=== PATIENT | female | born 1985 | race Caucasian/White ===

== ENCOUNTER → 2017-10-12 | Outpatient (CLI) | payer OTHER | LOC: FIMAGING 14:12 | PROVIDERS: ATTEND Obstetrics & Gynecology | DX: Z13.820 Encounter for screening for osteoporosis (principal); M85.80 Other specified disorders of bone density and structure, unspecified site ==

== ENCOUNTER 2018-02-10 15:13 | Emergency (ER) | payer OTHER ==
--- NOTE | 2018-02-10 15:18 | EDPHY ---
H & P Time Seen by Provider: 02/10/18 15:17 HPI/ROS: 32-year-old female presents complaining of right hand pain and bruising, she was putting her arm in her sweatshirt and accidentally hit a cabinet with the back of her hand. No numbness or tingling, no fevers or chills. Review of systems As per HPI General no fever no chills no weakness HEENT no eye pain no eye discharge. No eye redness, no sore throat Respiratory no cough, no shortness of breath Cardiac no chest pain, no peripheral edema GI no abdominal pain, no diarrhea, no constipation, no nausea, no vomiting no flank pain, no hematuria, no dysuria Musculoskeletal no myalgias, positive joint pain Heme no easy bruising, no easy bleeding Endo no polyuria, no polydipsia Skin no rashes, no pruritus Neuro no syncope, no dizziness, no headaches Psych is no suicidal ideation, no homicidal ideation Past Medical/Surgical History: Prior surgery on right wrist for a cyst Social History: Denies alcohol or drug use Smoking Status: Never smoked Physical Exam: 32-year-old female Alert and oriented in no acute distress nontoxic appearance, afebrile Atraumatic normocephalic Neck no JVD Lungs clear to auscultation, no respiratory distress Heart regular rate and rhythm Extremities no cyanosis clubbing edema right hand with ecchymoses to dorsum of hand extending to mcps 2,3,4 able to make a fist, no angulation, good breaker off from of digits, wrist and elbow sensation intact good cap refill minimal swelling Constitutional: Initial Vital Signs Temperature (C) 36.8 C 02/10/18 15:19 Heart Rate 60 02/10/18 15:19 Respiratory Rate 16 02/10/18 15:19 Blood Pressure 117/76 02/10/18 15:19 O2 Sat (%) 99 02/10/18 15:19 O2 Delivery Mode Room Air Allergies/Adverse Reactions: No Known Allergies Allergy (Verified 02/10/18 15:18) Home Medications: Medication Instructions Recorded Calcium Carbonate [Calcium] 02/10/18 Estradiol Transdermal Patch 02/10/18 Progesterone 02/10/18 Medical Decision Making - Diagnostics Imaging Results: Imaging Impressions Hand X-Ray 02/10/18 15:27 Impression: Nothing acute identified. ED Course/Re-evaluation: Pt seen for right hand injury from 2 days ago xray neg for fracture or sts Imp right hand dorsum contusion plan rest , ice, elevation ibuprofen or acetaminphen prn f/u pcp as needed Differential Diagnosis: Differential diagnosis considered but not limited to: Right hand sprain, right hand contusion, metacarpal fracture, phalanx fracture Departure - Departure Disposition: Home, Routine, Self-Care Clinical Impression: Contusion of right hand Condition: Good Instructions: Contusion in Adults (ED) Referrals: Emelyn Kitchen MD [Primary Care Provider] - As per Instructions
[2018-02-10 15:25] VITALS: BP 117/76
== END 2018-02-10 15:57 | disposition home or self-care (01) ==
LOC: CED 15:13
DX: S60.221A Contusion of right hand, initial encounter (principal); W22.8XXA Striking against or struck by other objects, initial encounter
CPT/HCPCS: 73130-PO

== ENCOUNTER 2018-08-07 07:32 | Inpatient (IN) | payer OTHER ==
--- NOTE | 2018-07-19 13:44 | GHP ---
DATE OF ADMISSION: 08/07/2018 ADMITTING DIAGNOSES: 1. Left complex mass. 2. Left lower quadrant pain. 3. Pelvic pain. HISTORY OF PRESENT ILLNESS: The patient is a 33-year-old nulliparous female who presents to the office with complaints of acute onset for the last 2-3 weeks of pelvic pressure and left lower quadrant pain. The pain is present on a daily basis. at times it is dull and achy, and other times it is sharp and stabbing with radiation into pelvis. Patient is taking Tramadol at night, which helps her to sleep. There is no associated nausea, or vomiting. Lying still exacerbates the pain. Being active and movement alleviates the pain. Normal bladder function noted. She does note constipation recently and change in bowel movements. The patient is no longer getting menstrual cycles and is doing overall well on hormone replacement therapy. The patient has a long history of ovarian cysts with multiple laparoscopies and was told she does not have a right ovary. Her most recent surgery was done 09/24 where she underwent a diagnostic laparoscopy, with extensive lysis of adhesions by General Surgery, ureterolysis, and a left salpingo oophorectomy. The patient states this pain is interfering with her work and would like to proceed with surgery at this time. PAST OBSTETRIC HISTORY: Patient is nulliparous. PAST GYNECOLOGIC HISTORY: Age of menarche 10. Cycles are now absent. No history of abnormal Pap smears. No history of exposure to sexually transmitted diseases. PAST MEDICAL HISTORY: Ovarian cysts. Pelvic pain.. PAST SURGICAL HISTORY: In 1999, she had shoulder surgery. In 2005, she had a laparoscopy with left cystectomy. In 2009, she had another laparoscopy with right cystectomy. In 2010, had a laparoscopy with left cystectomy. In 03/2103, she had a laparotomy for repair of bowel obstruction. Appendectomy. In 09/2016, she had laparoscopy with lysis of adhesions and left salpingo-oophorectomy. CURRENT MEDICATIONS: Tramadol 50 mg prn. Prometrium 100 mg. Estradiol 1 mg. ALLERGIES: No known drug allergies. FAMILY HISTORY: Unremarkable. SOCIAL HISTORY: Pt is and lives with her and foster adoptive parent of a 10-year-old and a 5-year-old. She is a teacher. Denies any alcohol, tobacco, or illicit drug use. STUDIES: Pelvic ultrasound reveals normal-appearing uterus measuring 7 x 4cm and thin endometrium; right adnexa is also normal appearing; there is a large complex mass in the left adnexa measuring 5 x 4 x 4 cm. There is flow to the rim of the mass, questionable endometrioma. PHYSICAL EXAMINATION: On admission: VITAL SIGNS: Stable. GENERAL: Patient is well-nourished, well-developed female. Alert and oriented x3. No apparent distress. SKIN: Warm, dry. Without rash. NEURO: Grossly intact. CARDIOVASCULAR: Regular rate and rhythm. LUNGS: Clear to auscultation bilaterally. ABDOMEN: Soft. Surgical scars noted. There is mild to moderate tenderness to palpation in left lower quadrant. No rebound or guarding noted. PELVIC: On bimanual exam, uterus is normal size, nontender, and mobile. There is tenderness to palpation and fullness noted in the left adnexa. EXTREMITIES: normal to inspection without calf tenderness or edema. ASSESSMENT/PLAN: Patient is a 33-year-old nulliparous female with history of ovarian cysts and multiple laparoscopic surgeries, now with a new onset left lower quadrant pain and a left complex mass. 1. Discussed the procedure, its limitations, nothing by mouth status, and post- op recovery. 2. Discussed risks, benefits, alternatives of surgery with the patient including but not limited to, bleeding, infection, damage to surrounding organs , and possible large incision. 3. Patient understands all risks of the surgery and wants to proceed at this time. Patient was properly consented. 4. Antibiotics long lines operator to operating room. 5. Sequential compression devices for deep vein thrombosis prophylaxis. /[id number]/MODL MTDD
[2018-08-07] MEDS ORDERED: ceFAZolin 2 GM/DEXTROSE 100 ML IV ONE (07:44)
[2018-08-07] MEDS ORDERED: LIDOCAINE 1% 2 ML INJ ID PRN (07:45)
[2018-08-07] MEDS ORDERED: LR 1,000 ML IV ONE (07:45)
[2018-08-07] MEDS ORDERED: LIDOCAINE 1% 2 ML INJ ONE (07:57)
--- NOTE | 2018-08-07 08:16 | PDANEPAE ---
ANE History of Present Illness 33 y/o female here for diagnostic laparoscopy for abdominal pain. ANE Past Medical History - Cardiovascular History Hx Hypertension: No Hx Arrhythmias: No Hx Chest Pain: No Hx Coronary Artery / Peripheral Vascular Disease: No Hx CHF / Valvular Disease: No Hx Palpitations: No - Pulmonary History Hx COPD: No Hx Asthma/Reactive Airway Disease: No Hx Recent Upper Respiratory Infection: No Hx Oxygen in Use at Home: No Hx Sleep Apnea: No Sleep Apnea Screening Result - Last Documented: Negative - Neurologic History Hx Cerebrovascular Accident: No Hx Seizures: No Hx Dementia: No - Endocrine History Hx Diabetes: No - Renal History Hx Renal Disorders: No - Liver History Hx Hepatic Disorders: No - Neurological & Psychiatric Hx Hx Neurological and Psychiatric Disorders: No - Cancer History Hx Cancer: No - Congenital Disorder History Hx Congenital Disorders: No - GI History GERD: no Hx Gastrointestinal Disorders: No - Other Health History Other Health History: reading glasses. LLQ pain - Chronic Pain History Chronic Pain: No - Surgical History Prior Surgeries: laparoscopy w/lysis of adhesions and left salpingo-oophprectomy , 09/2016. appendectomy. laparotomy for repair of bowel obstruction, 2012. laparoscopy w/left cystectomy, 2010. laparoscopy w/right cystectomy, 2009. laparoscopy w/left cystectomy, 2005. Shoulder surgery, 1999 ANE Review of Systems Review of Systems: - Exercise capacity Exercise capacity: >=4 METS METS (RN): 5 METS - Systems Gastrointestinal: Reports: abdominal pain ANE Patient History - Allergies Allergies/Adverse Reactions: No Known Allergies Allergy (Verified 07/21/18 11:06) - Home Medications Home medications: home medication list seen and reviewed Home Medications: Calcium Carbonate [Calcium] 02/10/18 [Last Taken 07/31/18] Estradiol Transdermal Patch 02/10/18 [Last Taken 08/04/18] Progesterone 02/10/18 [Last Taken 08/05/18] Ibuprofen PRN 07/21/18 [Last Taken 07/21/18] Melatonin 07/21/18 [Last Taken 08/05/18] Tylenol PRN 07/21/18 [Last Taken 08/05/18] - NPO status NPO Since - Liquids (Date): 08/07/18 NPO Since - Liquids (Time): 04:00 (CLEARS) - Anes Hx Anes Hx: no prior problems, post operative nausea (NAUSEA AFTER LAST GENERAL ANESTHETIC ONLY. DID NOT HAPPEN BEFORE) - Smoking Hx Smoking Status: Never smoked - Family Anes Hx Family Hx Anesthesia Complications: NEG ANE Labs/Vital Signs - Vital Signs Height: 160.02 cm Weight: 70.307 kg ANE Physical Exam - Airway Mallampati Score: Class 1 Mouth exam: normal dental/mouth exam - Pulmonary Pulmonary: no respiratory distress, clear to auscultation - Cardiovascular Cardiovascular: regular rate and rhythym, no murmur, rub, or gallop - ASA Status ASA Status: II
[2018-08-07] MEDS ORDERED: MIDAZOLAM 2 MG/2 ML VIAL IVP ONE (08:25)
[2018-08-07] MEDS ORDERED: SILVER NITRATE APPLICATOR 1 APPL TP ONE (08:31)
[2018-08-07] MEDS ORDERED: BUPIVACAINE 0.5% 30 ML SDV ONE (08:31)
--- NOTE | 2018-08-07 08:38 | PDHPUP ---
History & Physical Update H&P update statement: This history and physical update is based on an assessment of the patient which was completed after admission or registration (within 24 hours), but prior to the surgery/procedure. H&P update: H&P reviewed & patient examined, no change in patient's condition since H&P completed
[2018-08-07] MEDS ORDERED: fentaNYL 100 MCG/2 ML INJ ONE (08:49)
[2018-08-07] MEDS ORDERED: PROPOFOL 200 MG/20 ML VIAL ONE ×2 (08:50→09:33)
[2018-08-07] MEDS ORDERED: ROCURONIUM 50 MG/5 ML VIAL ONE ×2 (09:13→10:27)
[2018-08-07] MEDS ORDERED: ONDANSETRON 4 MG/2 ML VIAL ONE ×2 (09:13→12:29)
[2018-08-07] MEDS ORDERED: METOCLOPRAMIDE 10 MG/2 ML VIAL ONE (09:13)
[2018-08-07] MEDS ORDERED: DEXAMETHASONE 4 MG/ML VIAL ONE (09:13)
[2018-08-07] MEDS ORDERED: PETROLAT,WHT/MIN OIL/SOD CHL 3.5 GM OPHT.OINT ONE (09:45)
[2018-08-07] MEDS ORDERED: METHYLENE BLUE 0.5% 50 MG/10 ML AMP ONE (10:33)
[2018-08-07] MEDS ORDERED: ePHEDrine SULFATE 25 MG/5 ML SYR ONE (11:02)
[2018-08-07] MEDS ORDERED: HYDROmorphONE/DILAUDID 2 MG/ML INJ ONE ×2 (11:09→12:53)
[2018-08-07] MEDS ORDERED: GLYCOPYRROLATE 0.2 MG/1 ML VIAL ONE ×2 (11:20→11:21)
[2018-08-07] MEDS ORDERED: NEOSTIGMINE METHYLSULFATE 5 MG/5 ML SYR ONE (11:20)
[2018-08-07] MEDS ORDERED: ACETAMINOPHEN 500 MG TAB PO PRN (11:32)
[2018-08-07] MEDS ORDERED: NALOXONE HCL 0.4 MG/ML INJ IVP PRN ×2 (11:32→12:27)
[2018-08-07] MEDS ORDERED: LR 500 ML IV PRN (11:32)
[2018-08-07] MEDS ORDERED: DEXAMETHASONE 4 MG/ML VIAL IVP PRN (11:32)
[2018-08-07] MEDS ORDERED: ONDANSETRON 4 MG/2 ML VIAL IVP PRN ×2 (11:32→17:11)
--- NOTE | 2018-08-07 12:17 | POSTOPPROG ---
Post Op Note Date of Operation: 08/07/18 Surgeon: Leigh Griggs It Technical Architect: Abram Martino Anesthesiologist: Rosalba Hanks Anesthesia: GET(General Endotracheal) Pre-op Diagnosis: LLQ pain; L adnexal mass Post-op Diagnosis: LLQ pain; L adnexal mass; L endometrioma; Bowel adhesions Indication: 33 y/o w/ h/o endometriosis on HRT with acute LLQ pain; L adnexal mass u/s Procedure: Laparoscopy w/ MARIFER; L ov cystectomy; rpr of bowel injury w/ resection ; cyst Findings: Ut, L adnexa w/ bowel adhesions; R ovary absent; sigmoid adhered to L side Inf/Abcess present in the surg proc area at time of surgery?: No Depth: Organ Space EBL: 50-100 (50 cc) Total fluids administered: 1500 cc LR UO: 300 cc methylene blue stained urine Complications: Bowel injury noted secondary to dense adhesions noted in the pelvis; sigmoid colon adhered to L pelvic sidewall, intraoperative consult with Dr. Carter. Specimen(s): L ovarian cyst wall-fragments; portions of sigmoid colon
[2018-08-07] MEDS ORDERED: ONDANSETRON DISINTEGRATING 4 MG TAB PO PRN (12:21)
[2018-08-07] MEDS ORDERED: POLYETHYLENE GLYCOL 3350 17 GM PKT PO PRN (12:21)
[2018-08-07] MEDS ORDERED: BISACODYL 10 MG SUPP PR PRN (12:21)
[2018-08-07] MEDS ORDERED: MAGNESIUM HYDROXIDE 30 ML UDCUP PO PRN (12:21)
[2018-08-07] MEDS ORDERED: LACTULOSE 20 GM/30 ML UDCUP PO PRN (12:21)
[2018-08-07] MEDS ORDERED: HYDROmorphONE/DILAUDID 6 MG/30 ML PCA IV PRN (12:27)
[2018-08-07] MEDS ORDERED: PROMETHAZINE HCL 25 MG/ML INJ ONE (12:46)
[2018-08-07] MEDS: PROMETHAZINE HCL 25 MG/ML INJ IVP PRN ×2 (12:49→13:21)
[2018-08-07] MEDS: HYDROmorphONE/DILAUDID 2 MG/ML INJ IVP PRN ×2 (12:56→13:18)
[2018-08-07] MEDS: cefOXitin SODIUM 2 GM in NS 100 ML IV SCH ×2 (13:20→19:35)
--- NOTE | 2018-08-07 13:48 | PDMN ---
Medical Necessity Medical necessity: MCG: S232 bowel sgy: colectomy partial with or without ostomy : 4 days: Large bowel perforation : OP: Dg Laparoscopy MARIFER, L ovarian cystectomy, Laparotomy with repair of bowel perforation and sigmoid colon resection, cystoscopy
[2018-08-07] MEDS: SCOPOLAMINE HYDROBROMIDE 1 MG/3 DAYS PATCH TD SCH (14:44)
[2018-08-07] MEDS: KETOROLAC 30 MG/1 ML SDV IVP SCH ×2 (14:44→21:48)
--- NOTE | 2018-08-07 17:12 | POSTOPPROG ---
Post Op Note Date of Operation: 08/07/18 Surgeon: Brian Carter Anesthesia: GET(General Endotracheal) Pre-op Diagnosis: COLON PERFORATION Post-op Diagnosis: SAME Indication: CONTAMINATION Procedure: SIGMOID COLECTOMY Findings: TRANSECTED SIGMOID WITH ASSOCIATED ENDOMETRIOSIS Inf/Abcess present in the surg proc area at time of surgery?: Yes Depth: Organ Space EBL: Minimal Complications: 0 Specimen(s): SIGMOID COLON
--- NOTE | 2018-08-07 17:33 | SOAPPROG ---
SOAP Progress Note Assessment/Plan: Assessment: s/p dx laparoscopy with MARIFER, L ovarian endometrioma drainage & cystectomy Inadvertent bowel perforation with repair and sigmoid resection by GS POD #0 - pt is stable Plan: Continue routine post-op care Will cont antiemetics prn Will d/c Dilaudid LIMB DRIVER and cont Toradol and add Fentanyl for breakthrough pain Encourage IS and deep breaths Will try ice chips and water this evening, advance diet slowly Cont abx x 24 hours for bowel perf per GS recommendation H/H in am 08/0808/07/18 17:28 Subjective: Pt seen and examined. She had her nausea under control until she moved to sit up and now she is nauseated again. No vomiting. She had increased nausea with Dilaudid. Pain is 7/10 now, s/p Toradol at 1445; worse when she moves. No f/c/ CP or SOB. Her mouth is dry and she would like ice chips. Objective: Vital Signs Temp Pulse Resp BP Pulse Ox 36.2 C 71 18 99/64 L 98 08/07/18 16:30 08/07/18 16:30 08/07/18 16:30 08/07/18 16:30 08/07/18 16:30 08/06/18 08/07/18 08/08/18 05:59 05:59 05:59 Intake Total 2200 Output Total 675 Balance 1525 Physical Exam - Physical Exam General Appearance: WD/WN, alert, no apparent distress Respiratory: lungs clear, normal breath sounds Cardiac/Chest: regular rate, rhythm Abdomen: soft, distended (mild), other (TTP diffusely) Pelvic Exam: deferred Skin: normal color, warm/dry Extremities: non-tender, normal inspection (with SCDs) Neuro/Psych: alert, normal mood/affect, oriented x 3 ICD10 Worksheet Patient Problems: Problems Problem Status Onset Abdominal or pelvic swelling, mass, or lump, left upper quadrant Acute Endometrioma of ovary Acute LLQ pain Acute - ICD10 Problem Qualifiers (1) LLQ pain (2) Abdominal or pelvic swelling, mass, or lump, left upper quadrant (3) Endometrioma of ovary
[2018-08-07] MEDS ORDERED: PROMETHAZINE HCL 25 MG/ML INJ IVP PRN (17:40)
[2018-08-07] MEDS: fentaNYL 100 MCG/2 ML INJ IVP PRN ×3 (17:50→22:28)
--- NOTE | 2018-08-07 18:35 | GOP ---
DATE OF OPERATION: 08/07/2018 SURGEON: Brian Carter MD PREOPERATIVE DIAGNOSIS: Transected colon and endometriosis. POSTOPERATIVE DIAGNOSIS: Transected colon and endometriosis. PROCEDURE PERFORMED: Laparoscopy with lysis of adhesions and then open sigmoid colectomy with immedi ate repair. FINDINGS: It appears that the patient has significant adhesions in the left lower quadrant. It appe ars that the colon had been transected while dissecting away some endometrial implants. There was no significant leakage from the colon, but sigmoid was fixed up to the lateral anterior abdominal wall with significant adhesions. DESCRIPTION OF PROCEDURE: The patient was in the operating room undergoing left excision of an endom etrioma by Dr. Griggs. I was consulted because of difficulties with exposure and adhesions. Left lo wer quadrant adhesions were lysed with the Harmonic Scalpel and appeared that the sigmoid colon had b een transected probably with the LigaSure which had temporarily sealed the colon because there was no spillage or evidence of leakage. The left colon was freed up, adhesions were taken down and the lef t-sided portion of the descending colon was freed up to the splenic flexure for better mobility. The distal colon was mobilized and appeared to be quite free, but there was a long distal segment which would not allow EEA usage. It was elected at that point to perform a Pfannenstiel lower abdominal in cision. This was done, carried down to the anterior rectus sheath which was incised transversely and fascial flaps were elevated up off the rectus muscle above and below the incision. The abdomen was then entered in the midline between the rectus muscles. Retraction was established with the Christ retractor. The 2 ends of the colon were brought up, the segment of the colon was resected by dividin g the remaining mesenteric attachments with the Harmonic Scalpel and then dividing the colon with a G IA stapler. The specimen was removed and a epyd-lw-shgj anastomosis was then done with insertion of the Endo ROHIT stapler and a cross application of the stapler to close the insertion site. The suture line was reinforced with interrupted 3-0 Vicryl sutures. The mesentery was closed with a running 3-0 Vicryl suture. The staple lines were imbricated with a running 3-0 Vicryl suture. We created a goo d 3 fingerbreadth anastomosis. The abdomen was then copiously irrigated. Hemostasis was assured. Th ere was minimal contamination. There was some open fecal spillage. The wound was then closed with a running 0 Vicryl suture for the peritoneum and posterior sheath and a running #1 PDS suture for the anterior rectus sheath. The skin wound was infiltrated with 0.5% Marcaine and the skin was eventually closed with a running Monocryl suture by Dr. Griggs. There were no complications. Blood loss negli gible. At that point, the procedure was turned back over to Dr. Griggs who had assisted on the colon resection. /[id number]/MODL
[2018-08-07] MEDS: SENNOSIDES/DOCUSATE SODIUM TAB PO SCH (20:12)
--- NOTE | 2018-08-07 23:22 | GOP ---
DATE OF OPERATION: 08/07/2018 SURGEON: Leigh Griggs DO INSTRUCTOR ROBOTICS: Abram Martino MD. INTRAOPERATIVE CONSULT: Brian Carter MD. ANESTHESIA: General endotracheal. ANESTHESIOLOGIST: Latonya Navarrete MD. PREOPERATIVE DIAGNOSIS: 1. Left lower quadrant pain. 2. Left complex adnexal mass. POSTOPERATIVE DIAGNOSIS: 1. Left lower quadrant pain. 2. Left complex adnexal mass. 3. Left ovarian endometrioma. 4. Bowel adhesions with inadvertent bowel injury PROCEDURE PERFORMED: 1. Diagnostic laparoscopy. 2. Extensive lysis of adhesions. 3. Left ovarian drainage with cystectomy. 4. Cystoscopy. 5. Lysis of adhesions, and open colectomy with repair by Dr. Kristopher Carter MD FINDINGS: Grossly normal-appearing uterus that sounded to 7-8 cm. There were some omental adhesions noted to the left side of the uterus as well as bowel adhesions noted in left adnexa. The sigmoid colon was adhered densely to the left pelvic sidewall up to the anterior abdominal wall. Right tube appeared grossly normal appearing. Right ovary was surgically absent. Left ovary appeared enlarged to about 4-5 cm with a left endometrioma. Upper abdomen was grossly normal appearing. SPECIMENS: Include left ovarian cyst wall, portions of sigmoid colon. ESTIMATED BLOOD LOSS: 50 cc. INDICATIONS: Patient is a 33-year-old nulliparous female with a long history of ovarian cysts. She presented to my office with acute onset of pelvic pressure and left lower quadrant pain for 2-3 weeks' duration. Patient states pain is on a daily basis and at times it is dull and achy and other times it is sharp and stabbing, with radiation to her pelvis. Patient is taking tramadol at night, which helps her sleep. There is no associated nausea or vomiting. Lying still exacerbates the pain and being active and movement alleviates the pain. Normal bladder function noted. She has had no constipation recently, but notes a change in her bowel movements. Pelvic u/s was done int he office demonstrating an enlarged complex left adnexal mass. Patient is no longer getting menstrual cycles, and doing overall well on hormone replacement therapy. Patient has a long history of ovarian cysts with multiple laparoscopies with removal of her right ovary. Most recent surgery was done 2015 when she underwent a diagnostic laparoscopy, extensive lysis of adhesions by General Surgery, ureterolysis and left salpingo-oophorectomy. Patient states the pain is interfering with her work at this time and would like to proceed with surgery. Patient was properly consented. Surgical consents were obtained. We discussed risks of bleeding, infection, damage to surrounding organs, and risk of a large incision. Patient understands all risks at this time and wants to proceed. DESCRIPTION OF PROCEDURE: Patient was taken to the operating room where general anesthesia was obtained without difficulty. The patient was placed in dorsal lithotomy position, prepped and draped in the usual sterile fashion. Kumar catheter was placed in the bladder. After a WHO time-out was performed, a weighted speculum was placed in the vagina. The anterior lip of the cervix was grasped with a single-tooth tenaculum. Uterus was sounded to 7-8 cm, and a Waizy uterine manipulator was advanced into the uterus to provide a means to manipulate the uterus. The speculum was then removed, and attention was turned to the abdomen. After injecting local with 0.5% plain Marcaine, a 5 mm skin incision was made infraumbilically with a blade and extended with a hemostat. Veress needle was then inserted through this incision without difficulty. Aspiration was negative , and pneumoperitoneum was obtained without difficulty. Veress needle was then removed. The 5 mm trocar and 0-degree laparoscope were then advanced directly down to the abdomen without difficulty with visualization of the pelvis. More local was injected in left and ride side of lower abdomen and we made another 5 mm incision on the left and a 10 mm incision on the right. Atraumatic trocars were then placed and advanced without difficulty under direct visualization. Patient was placed in Trendelenburg. At this time, there were omental adhesions noted to the uterus on the left side. These were taken down using the LigaSure. We continued with our dissection down to the left adnexa. Extensive adhesiolysis was performed using the LigaSure. Hemostasis was noted. The left ovary was finally identified, and was enlarged to about 5-6 cm. The cyst was then drained by making an incision into ovary with LigaSure. There was noted to be serous fluid as well as "chocloate cyst," complex in nature. The cyst was then drained using suction coal chemist, and the cyst wall was then removed using [place] graspers. There was not much ovarian tissue visualized after dissection. We then continued with our dissection to what appeared to be a hydrosalpinx and transected along this to the left pelvic sidewall. At this time, an intraoperative consult with Dr. Carter was done secondary to distorted anatomy, bowel adhesions and possibly a bowel injury. Dr. Kristopher Carter scrubbed into the case and will be dictating his portion of the case. After lysis of adhesions, the left colon was finally freed up and it appeared that the sigmoid colon was fixed up along the left pelvic sidewall all the way up to the anterior abdominal wall and appeared to be transected with no leakage or spill of feces. He then proceeded with an open sigmoid colectomy and immediate repair at this time. The pelvis was copiously irrigated with normal saline and all pedicles did appear hemostatic. Minimal contamination was noted. At this time, we turned our attention to cystoscopy. The Kumar catheter was removed and the 30 degree cystoscope was placed and advanced directly through the urethra into the bladder. The bladder dome was visualized as well as the trigone. Both ureteral orifices were visualized and were patent with spill of methylene blue bilaterally. Cystoscope was then removed, and a new Kumar catheter was placed with drainage of methylene blue stained urine. The 10 mm fascial incision was then closed with a Brian-Casandra device with 0 Vicryl. All other trocars were then removed without difficulty. All air was allowed to escape from the abdomen. The 5 mm skin incisions were closed with Dermabond, and the Pfannenstiel skin incision was then closed with a running 4-0 Vicryl on a curved needle. Dressing was placed on the incision. All instruments were removed from the vagina. Hemostasis was noted. Sponge, lap, and needle counts were correct x2. Patient tolerated well. The patient was then awakened, taken out of dorsal lithotomy position, and taken to PACU in stable condition. IV FLUIDS: 1500 cc LR. URINE OUTPUT: 300 cc of methylene stained blue urine at the end of the procedure. COMPLICATIONS: Inadvertent bowel injury with colectomy and repair by Dr. Brian Carter. /[id number]/MODL MTDD
[2018-08-08] MEDS: LR 1,000 ML IV SCH ×3 (00:12→16:28)
[2018-08-08] MEDS: KETOROLAC 30 MG/1 ML SDV IVP SCH ×3 (04:07→19:08)
[2018-08-08] MEDS: cefOXitin SODIUM 2 GM in NS 100 ML IV SCH ×3 (04:07→19:08)
[2018-08-08] MEDS: HYDROCODONE/APAP 5/325 TAB PO PRN ×4 (06:39→22:18)
--- NOTE | 2018-08-08 08:16 | SOAPPROG ---
SOAP Progress Note Assessment/Plan: Assessment: s/p dx laparoscopy with MARIFER, L ovarian endometrioma drainage & cystectomy Inadvertent bowel perforation with repair and sigmoid resection by GS POD #1 - pt is stable Plan: Continue routine post-op care Due for Toradol at 1000 this am, then will start po analgesics as ordered; can have Fentanyl for breakthrough pain Encourage IS and ambulation Dressing to be removed after lunch and pt may shower if up to it Plan to advance diet slowly, will wait for GS to see pt this am Cont abx x 24 hours for bowel perf per GS recommendation Urine output is adequate and pt voided twice without difficulty 08/08/18 08:10 Subjective: Pt seen and examined. She is getting back into bed from using the restroom. She did well throughout the night, nausea finally resolved. Pain is overall well controlled, the pressure is gone but notes some incisional pain. Pt tolerated [place] this am. Pt is OOB, tolerating clears, voiding x 2 without difficulty, no flatus yet. Denies any f/c/n/v/CP or SOB. No calf tenderness. Minimal spotting noted, mostly in toilet after voiding this am. Objective: Vital Signs Temp Pulse Resp BP Pulse Ox 37.4 C 91 16 109/54 L 98 08/08/18 04:17 08/08/18 04:17 08/08/18 04:17 08/08/18 04:17 08/08/18 06:42 Laboratory Results 08/08/18 05:41 08/07/18 08/08/18 08/09/18 05:59 05:59 05:59 Intake Total 4280 Output Total 2500 Balance 1780 Physical Exam - Physical Exam General Appearance: WD/WN, alert, no apparent distress Respiratory: lungs clear, normal breath sounds Abdomen: normal bowel sounds (hypoactive BS noted), soft, distended (mild), other (diffuse tenderness, mild) Pelvic Exam: deferred Skin: normal color, warm/dry Extremities: non-tender, normal inspection Neuro/Psych: alert, normal mood/affect, oriented x 3 ICD10 Worksheet Patient Problems: Problems Problem Status Onset Abdominal or pelvic swelling, mass, or lump, left upper quadrant Acute Endometrioma of ovary Acute LLQ pain Acute - ICD10 Problem Qualifiers (1) LLQ pain (2) Abdominal or pelvic swelling, mass, or lump, left upper quadrant (3) Endometrioma of ovary
[2018-08-08] MEDS: fentaNYL 100 MCG/2 ML INJ IVP PRN ×2 (08:52→16:15)
[2018-08-08] MEDS: SENNOSIDES/DOCUSATE SODIUM TAB PO SCH ×2 (10:08→22:18)
[2018-08-08] MEDS: IBUPROFEN 600 MG TAB PO SCH ×2 (16:00→22:18)
--- NOTE | 2018-08-08 17:10 | SOAPPROG ---
SOMELINDA Progress Note Assessment/Plan: Assessment: SP PARTIAL COLECTOMY/ COMFORTABLE, AFEBRILE, HUNGRY ABD SOFT WITH SOME BS/ NEG FLATUS OR BM TOLERATING CLEARS Plan:ADVANCE DIET WHEN FLATUS PRESENT 08/08/18 17:07 Objective: Vital Signs Temp Pulse Resp BP Pulse Ox 36.6 C 75 17 95/63 L 96 08/08/18 12:00 08/08/18 12:00 08/08/18 12:00 08/08/18 12:00 08/08/18 12:00 Laboratory Results 08/08/18 05:41 08/07/18 08/08/18 08/09/18 05:59 05:59 05:59 Intake Total 4280 Output Total 2500 1450 Balance 1780 -1450 ICD10 Worksheet Patient Problems: Problems Problem Status Onset Abdominal or pelvic swelling, mass, or lump, left upper quadrant Acute Endometrioma of ovary Acute LLQ pain Acute
--- NOTE | 2018-08-08 18:04 | SOAPPROG ---
SOAP Progress Note Assessment/Plan: Assessment: s/p dx laparoscopy with MARIFER, L ovarian endometrioma drainage & cystectomy Inadvertent bowel perforation with repair and sigmoid resection by POD #1 - pt is stable Plan: Continue routine post-op care Per GS, advance diet once passing flatus Cont analgesics prn Encourage ambulation Pt to shower in am Pt afebrile, but incisions have some slight erythema, will jenn and continue to observe Will heplock IV, urine output is good and pt drinking lots of water 08/08/18 17:58 Subjective: Pt is lying in bed with no complaints at this time. She was up in the hallway earlier "doing laps." She didn't get her pain meds at 1500 and her pain was pretty bad with pain 8/10; pt was given Fentanyl IV. Pain now improved. Abhijit clears, voiding without difficulty, no flatus yet. Denies any f/c/n/v/CP or SOB. No spotting noted. Objective: Vital Signs Temp Pulse Resp BP Pulse Ox 37.3 C 65 15 98/63 L 96 08/08/18 17:08 08/08/18 17:05 08/08/18 17:05 08/08/18 17:05 08/08/18 17:05 Laboratory Results 08/08/18 05:41 08/07/18 08/08/18 08/09/18 05:59 05:59 05:59 Intake Total 4280 Output Total 2500 1450 Balance 1780 -1450 Physical Exam - Physical Exam General Appearance: WD/WN, alert, no apparent distress Respiratory: lungs clear, normal breath sounds Cardiac/Chest: regular rate, rhythm Abdomen: non-tender, soft, distended (mild), other (Hypoactive BS; Laparoscopic incisions x 4 - C/D/I, well approximated w/ dermabond-slight erythema noted. Pfannenstiel incision - C/D/I, sutured, with slight erythema superiorly.) Pelvic Exam: deferred Extremities: non-tender, normal inspection Neuro/Psych: alert, normal mood/affect, oriented x 3 ICD10 Worksheet Patient Problems: Problems Problem Status Onset Abdominal or pelvic swelling, mass, or lump, left upper quadrant Acute Endometrioma of ovary Acute LLQ pain Acute - ICD10 Problem Qualifiers (1) LLQ pain (2) Abdominal or pelvic swelling, mass, or lump, left upper quadrant (3) Endometrioma of ovary
[2018-08-09] MEDS: HYDROCODONE/APAP 5/325 TAB PO PRN ×3 (04:05→15:25)
[2018-08-09] MEDS: IBUPROFEN 600 MG TAB PO SCH ×4 (04:05→22:27)
--- NOTE | 2018-08-09 08:34 | SOAPPROG ---
SOAP Progress Note Assessment/Plan: Assessment: s/p dx laparoscopy with MARIFER, L ovarian endometrioma drainage & cystectomy Inadvertent bowel perforation with sigmoid resection and repair by GS POD #2 - pt is stable Plan: Continue routine post-op care No BS heard this am and no passage of flatus, cont clears for now Encourage ambulation Pt to shower this am 08/09/18 08:32 Subjective: Pt seen and examined. Doing well, pain is controlled with po meds. She was up walking the halls this morning. Abhijit clears, voiding without difficulty, no flatus yet. Denies any f/c/n/v/CP or SOB. Objective: Vital Signs Temp Pulse Resp BP Pulse Ox 36.4 C 80 18 102/65 99 08/09/18 08:07 08/09/18 08:07 08/09/18 08:07 08/09/18 08:07 08/09/18 08:07 Laboratory Results 08/08/18 05:41 08/08/18 08/09/18 08/10/18 05:59 05:59 05:59 Intake Total 4280 1475 Output Total 2500 2050 Balance 1780 -575 Physical Exam - Physical Exam General Appearance: WD/WN, alert, no apparent distress Respiratory: lungs clear, normal breath sounds Cardiac/Chest: regular rate, rhythm Abdomen: non-tender, soft, distended (mild), other (absent bowel sounds; Lap incisions x 4 : C/D/I; dermabond; no erythema outside marked areas. Pfannenstiel : C/D/I, no worsening erythema) Skin: normal color, warm/dry Extremities: non-tender, normal inspection Neuro/Psych: alert, normal mood/affect, oriented x 3 ICD10 Worksheet Patient Problems: Problems Problem Status Onset Abdominal or pelvic swelling, mass, or lump, left upper quadrant Acute Endometrioma of ovary Acute LLQ pain Acute - ICD10 Problem Qualifiers (1) LLQ pain (2) Abdominal or pelvic swelling, mass, or lump, left upper quadrant (3) Endometrioma of ovary
--- NOTE | 2018-08-09 08:52 | POSTANESTH ---
Post Anesthetic Evaluation Respiratory Status: Normal, Stable Level of Consciousness/Mental Status: Can Participate in Eval Pain Control: Adequate, Prn Tx Ordered Nausea/Vomiting Control: Adequate, Prn Tx Ordered Complications Possibly Related to Anesthesia: None Noted (This is a late entry for 08/07/18. I was involved with the patient's recovery and assessed her appropriately on that date.)
[2018-08-09] MEDS: SENNOSIDES/DOCUSATE SODIUM TAB PO SCH ×2 (10:16→22:27)
--- NOTE | 2018-08-09 10:55 | SOAPPROG ---
SOAP Progress Note Assessment/Plan: Assessment/Plan: 33 Y F s/p laparoscopy c laparotomy adhesiolysis and sigmoid colectomy, endometriosis, POD#2. Ileus. Continue clears for now. Ambulating. No flatus yet. No nausea. Wounds. Redness marked--no progression. Doubt infection although she is slight more at risk for this. Continue observation. Possibly ecchymosis and not erythema. Dispo: Overall doing well, but dispo pending resolution of ileus. S: no flatus. walking. tolerating clears. O: alert, nad seen while walking from bathroom to bed lungs clear rrr abd softly bloated. hypoactive BS. inc--see above. 08/09/18 10:52 Objective: Vital Signs Temp Pulse Resp BP Pulse Ox 36.4 C 80 18 102/65 99 08/09/18 08:07 08/09/18 08:07 08/09/18 08:07 08/09/18 08:07 08/09/18 08:07 Laboratory Results 08/08/18 05:41 08/08/18 08/09/18 08/10/18 05:59 05:59 05:59 Intake Total 4280 1475 Output Total 2500 2050 Balance 1780 -575 ICD10 Worksheet Patient Problems: Problems Problem Status Onset Abdominal or pelvic swelling, mass, or lump, left upper quadrant Acute Endometrioma of ovary Acute LLQ pain Acute
[2018-08-09] MEDS: SIMETHICONE 80 MG TAB CHEW PO SCH ×2 (19:30→21:00)
[2018-08-10] MEDS: HYDROCODONE/APAP 5/325 TAB PO PRN ×4 (00:36→17:34)
[2018-08-10] MEDS: IBUPROFEN 600 MG TAB PO SCH ×3 (05:19→17:34)
[2018-08-10 08:14] LABS: PLATELET COUNT 111 10^3/uL (150-400)
--- NOTE | 2018-08-10 12:17 | SOAPPROG ---
SOAP Progress Note Assessment/Plan: Assessment: s/p dx laparoscopy with MARIFER, L ovarian endometrioma drainage & cystectomy Inadvertent bowel perforation with sigmoid resection and repair by GS POD #3 - pt is stable Wound cellulitis - pt is afebrile and no leukocytosis Minimal passage of flatus Plan: Continue routine post-op care Will start Keflex for tx of cellulitis and Benadryl for itching prn Remove IV No passage of flatus since yesterday, cont clears for now Continue ambulation 08/10/18 12:21 Subjective: Pt seen and examined. Pt has been ambulating quite a bit, she is frustrated and ready to go home. Pain is well controlled with po meds. She is ila clears without n/v, voiding and hasn't passed gas since yesterday. Denies any f/c/CP or SOB. She states incisions are nontender, but itchy and feels they are getting more red. Objective: Vital Signs Temp Pulse Resp BP Pulse Ox 36.6 C 68 16 113/68 93 08/10/18 05:18 08/10/18 05:18 08/10/18 05:18 08/10/18 05:18 08/10/18 05:18 Laboratory Results 08/10/18 08:00 08/09/18 08/10/18 08/11/18 05:59 05:59 05:59 Intake Total 1475 Output Total 0 Balance -575 Physical Exam - Physical Exam General Appearance: WD/WN, alert, no apparent distress Respiratory: lungs clear, normal breath sounds Cardiac/Chest: regular rate, rhythm Abdomen: non-tender, soft, distended (less distended), other (hypoactive BS; Lap incisons x 4-C/D/I, +erythema with spread, NT. Pfannenstial - C/D/I, + erythema noted inferiorly, NT. ) Pelvic Exam: deferred Skin: normal color, warm/dry Extremities: non-tender, normal inspection Neuro/Psych: alert, normal mood/affect, oriented x 3 ICD10 Worksheet Patient Problems: Problems Problem Status Onset Abdominal or pelvic swelling, mass, or lump, left upper quadrant Acute Endometrioma of ovary Acute LLQ pain Acute - ICD10 Problem Qualifiers (1) LLQ pain (2) Abdominal or pelvic swelling, mass, or lump, left upper quadrant (3) Endometrioma of ovary
[2018-08-10] MEDS: CEPHALEXIN 500 MG CAP PO SCH ×2 (12:39→18:33)
[2018-08-10] MEDS: diphenhydrAMINE 25 MG CAP PO PRN ×2 (12:40→20:00)
--- NOTE | 2018-08-10 14:03 | SOAPPROG ---
SOAP Progress Note Assessment/Plan: Assessment/Plan: 33 Y F s/p laparoscopy c laparotomy adhesiolysis and sigmoid colectomy, endometriosis, POD#3 S: Improving. Passed small amount of gas last night. No BM. Tolerating light diet. O: Alert Afebrile WBC nl RRR No increased WoB Abdomen: soft, appropriately ttp, +BS, incisions with erythema and warmth. Areas of redness have expanded since yesterday. Plan: Agree with Keflex for poss. cellulitis, although normal WBC reassuring. Continue light diet. 08/10/18 13:49 Objective: Vital Signs Temp Pulse Resp BP Pulse Ox 36.7 C 83 16 117/79 98 08/10/18 12:55 08/10/18 12:55 08/10/18 12:55 08/10/18 12:55 08/10/18 12:55 Laboratory Results 08/10/18 08:00 08/09/18 08/10/18 08/11/18 05:59 05:59 05:59 Intake Total 1475 Output Total 2049 Balance -575 ICD10 Worksheet Patient Problems: Problems Problem Status Onset Abdominal or pelvic swelling, mass, or lump, left upper quadrant Acute Endometrioma of ovary Acute LLQ pain Acute
[2018-08-10] MEDS ORDERED: PATCH REMOVAL 1 EA PATCH TD SCH (14:28)
[2018-08-10] MEDS: SENNOSIDES/DOCUSATE SODIUM TAB PO SCH (19:30)
[2018-08-10] MEDS: SIMETHICONE 80 MG TAB CHEW PO SCH ×2 (19:31→21:37)
[2018-08-11] MEDS: IBUPROFEN 600 MG TAB PO SCH ×3 (00:05→12:15)
[2018-08-11] MEDS: HYDROCODONE/APAP 5/325 TAB PO PRN ×3 (00:05→12:14)
[2018-08-11] MEDS: CEPHALEXIN 500 MG CAP PO SCH ×3 (00:06→12:14)
[2018-08-11] MEDS: SENNOSIDES/DOCUSATE SODIUM TAB PO SCH ×2 (00:12→09:21)
[2018-08-11] MEDS: diphenhydrAMINE 25 MG CAP PO PRN ×2 (03:35→12:14)
[2018-08-11] MEDS: SCOPOLAMINE HYDROBROMIDE 1 MG/3 DAYS PATCH TD SCH (05:46)
[2018-08-11 09:04] VITALS: BP 122/85
[2018-08-11] MEDS: SIMETHICONE 80 MG TAB CHEW PO SCH ×2 (09:22→09:24)
--- NOTE | 2018-08-11 10:27 | SOAPPROG ---
SOAP Progress Note Assessment/Plan: Assessment/Plan: 33 Y F s/p laparoscopy c laparotomy adhesiolysis and sigmoid colectomy, endometriosis, POD#3 S: Improving. Passed small amount of gas last night. No BM. Tolerating light diet. O: Alert Afebrile WBC nl RRR No increased WoB Abdomen: soft, appropriately ttp, +BS, incisions with erythema and warmth. Areas of redness have expanded since yesterday. Plan: Agree with Keflex for poss. cellulitis, although normal WBC reassuring. Continue light diet. 08/10/18 13:49 08/11/18 10:27 Feeling better. Passing gas. Ok to go from surgery standpoint. Objective: Vital Signs Temp Pulse Resp BP Pulse Ox 36.4 C 76 18 122/85 H 96 08/11/18 08:00 08/11/18 08:00 08/11/18 08:00 08/11/18 08:00 08/11/18 08:00 Laboratory Results 08/11/18 06:15 ICD10 Worksheet Patient Problems: Problems Problem Status Onset Abdominal or pelvic swelling, mass, or lump, left upper quadrant Acute Endometrioma of ovary Acute LLQ pain Acute
--- NOTE | 2018-08-11 11:30 | SOAPPROG ---
SOAP Progress Note Assessment/Plan: Assessment: s/p dx laparoscopy with MARIFER, L ovarian endometrioma drainage & cystectomy Inadvertent bowel perforation with sigmoid resection and repair by GS POD # 4 - pt is stable Wound cellulitis - pt is afebrile and no leukocytosis, on Keflex Plan: Continue routine post-op care Pt is stable for d/c per GS Instructions reviewed with pt Rx given for Keflex, Motrin and [place] Keep incisions clean and dry Cont colace; recommend MOM and Miralax to avoid constipation-increase water and fiber in diet Pelvic rest x 4 weeks Lifting restrictions RTC in 1 week for an incision check 08/11/18 11:25 Subjective: Pt seen and examined. Doing well, but upset about news that she is not able to go back to work until 4 weeks from now. Pain is well controlled. Pt is OOB, ila regular diet, voiding and passing lots of flatus. No BM yet. Denies any f/c/n/v/ CP or SOB. Incisions remain red, nontender, but started to drain last pm-martinez umbilicus and RLQ incisions. Objective: Vital Signs Temp Pulse Resp BP Pulse Ox 36.4 C 76 18 122/85 H 96 08/11/18 08:00 08/11/18 08:00 08/11/18 08:00 08/11/18 08:00 08/11/18 08:00 Laboratory Results 08/11/18 06:15 Physical Exam - Physical Exam General Appearance: WD/WN, alert, no apparent distress Respiratory: lungs clear, normal breath sounds Cardiac/Chest: regular rate, rhythm Abdomen: normal bowel sounds, soft, other (appropriate tenderness; Lap incisions x 4-some drainage serosang from umb; appears to be blistering w/ drainage near RLQ; Pfannenstiel-C/D/I, +erythema inf, NT) Pelvic Exam: deferred Skin: normal color, warm/dry Extremities: non-tender, normal inspection Neuro/Psych: alert, normal mood/affect, oriented x 3 ICD10 Worksheet Patient Problems: Problems Problem Status Onset Abdominal or pelvic swelling, mass, or lump, left upper quadrant Acute Endometrioma of ovary Acute LLQ pain Acute - ICD10 Problem Qualifiers (1) LLQ pain (2) Abdominal or pelvic swelling, mass, or lump, left upper quadrant (3) Endometrioma of ovary
--- NOTE | 2018-08-13 17:47 | GDS ---
ADMITTING DIAGNOSES: 1. Left lower quadrant abdominal pelvic pain. 2. Left complex adnexal mass. DISCHARGE DIAGNOSES: 1. Left lower quadrant abdominal pelvic pain. 2. Left complex adnexal mass. 3. Left ovarian endometrioma. 4. Bowel adhesions with inadvertent bowel injury. PROCEDURE: Diagnostic laparoscopy. Extensive lysis of adhesions. Left ovarian drainage with cystectomy. Cystoscopy. Further lysis of adhesions and open colectomy with repair by Dr. Kristopher Carter. INTRAOPERATIVE CONSULT: Dr. Kristopher Carter, General Surgery. COMPLICATIONS: Inadvertent bowel injury with open colectomy with immediate repair. HPI: The patient is a 33-year-old nulliparous female with long history of ovarian cysts. She presented to my office with acute onset of pelvic pressure, left lower quadrant pain for 2-3 weeks duration. 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 No associated nausea or vomiting. She has noted a change in her bowel movements recently. Pelvic ultrasound was done in the office, demonstrating a large complex left adnexal mass. The patient is no longer getting menstrual cycles. Doing overall well on hormone replacement therapy. The patient does have a long history of ovarian cysts and multiple laparoscopies and with removal of her right ovary. The most recent surgery was done 09/2016. She underwent a diagnostic laparoscopy, extensive lysis of adhesions by General Surgery, ureterolysis, and left salpingo-oophorectomy. HOSPITAL COURSE: Overall, patient did well. Because of the bowel injury, patient was given Mefoxin 2 g q.6 hours for the 1st 24 hours post-op. Her diet was advanced very slowly and was on clear liquids until POD #3 when she started passing gas and was advanced to a light diet, which she tolerated. She did not have a bowel movement while in the hospital. The patient remained afebrile. Her pain was well controlled with oral medications. She was voiding without difficulty. Incisions on POD #3 became erythematous and warm to touch with expansion of redness and some drainage. Patient was then started on Keflex for cellulitis, although there was no leukocytosis noted. The patient was then discharged home on POD #4. She was stable from General Surgery standpoint. DISCHARGE PLAN: Condition upon discharge: The patient is stable. Activity: Lifting restrictions were given, no more than 20 pounds. Pelvic rest for the next 2 weeks and no driving for 2 weeks. Patient is out of work for 4 weeks. Diet: No restrictions on diet. Stay well hydrated and increase fiber. The patient will be following up with Dr. Griggs in 1 week for an incision check and instructed to call General Surgery, Dr. Kristopher Carter, in 1 week for a post- op appointment. MEDICATIONS AT DISCHARGE: Include [place], Ibuprofen, Keflex, estradiol patch, and Prometrium. /[id number]/MODL MTDD
== END 2018-08-11 12:35 | disposition home or self-care (01) | DRG 742 ==
LOC: FSGY 07:32 → FOB 12:21
PROVIDERS: ADMIT Obstetrics & Gynecology; ATTEND Obstetrics & Gynecology
DX: N80.1 Endometriosis of ovary (principal); K91.72 Accidental puncture and laceration of a digestive system organ or structure during other procedure; N73.6 Female pelvic peritoneal adhesions (postinfective); K56.7 Ileus, unspecified; T81.41XA Infection following a procedure, superficial incisional surgical site, initial encounter; L03.311 Cellulitis of abdominal wall; N70.11 Chronic salpingitis; Z53.31 Laparoscopic surgical procedure converted to open procedure; Z23 Encounter for immunization
CPT/HCPCS: G0008; J0690; J0694; J1100; J1170; J1885; J2250; J2405; J2550; J2704; J2710; J2765; J3010; Q9968